=== PATIENT | male | born 1970 | race Caucasian/White ===

== ENCOUNTER 2017-07-07 03:30 | Observation (INO) | payer SELFPAY ==
[2017-07-07] VITALS (16 sets, daily range): BP systolic 162–185; BP diastolic 96–111; PULSE 86–100; RESP 14–20; TEMP 97.7–99.4; O2SAT 93–100
[~2017-07-07] VITALS: Ht 180.3 cm; Wt 108.2 kg
[2017-07-07] MEDS ORDERED: ONDANSETRON HCL 4 MG/2 ML VIAL IV PUSH ONE (04:30)
[2017-07-07] MEDS ORDERED: MORPHINE SULFATE 4 MG/ML INJ IV PUSH ONE ×2 (04:30→11:30)
--- NOTE | 2017-07-07 04:42 | RADRPT ---
EXAM DATE/TIME: 07/07/2017 04:31 [place] COMPARISON: No previous studies available for comparison. INDICATIONS : Right hand pain. No known trauma. MEDICAL HISTORY : None. SURGICAL HISTORY : None. ENCOUNTER: Initial ACUITY: 2 days PAIN SCORE: 10/10 LOCATION: Right hand. FINDINGS: Three view examination of the right hand demonstrates no soft tissue swelling, dislocation, or fractu re. The carpal bones appear intact. The interphalangeal and metacarpophalangeal joints are intact. Bony mineralization is normal. CONCLUSION: Normal examination for a patient of this age. Elmer Clark MD on July 07, 2017 at 4:39 Board Certified Radiologist. This report was verified electronically.
[2017-07-07 04:57] LABS: AUTOMATED NEUTROPHIL # 6.7 TH/MM3 (1.8-7.7); BASOPHIL # 0.1 TH/MM3 (0-0.2); BASOPHIL % 0.9 % (0.0-2.0); EOSINOPHIL # 0.1 TH/MM3 (0-0.4); EOSINOPHIL % 1.1 % (0.0-4.0); HEMATOCRIT 32.5 % (39.0-51.0); LYMPH % 13.7 % (9.0-44.0); LYMPHOCYTE # 1.3 TH/MM3 (1.0-4.8); MEAN CELL VOLUME 74.5 FL (80.0-100.0); MEAN CORPUSCULAR HEMOGLOBIN 23.2 PG (27.0-34.0); MEAN CORPUSCULAR HGB CONC 31.1 % (32.0-36.0); NEUT % 72.3 % (16.0-70.0); PLATELET COUNT 311 TH/MM3 (150-450); RED BLOOD COUNT 4.36 MIL/MM3 (4.50-5.90); RED CELL DISTRIBUTION WIDTH 21.2 % (11.6-17.2); WHITE BLOOD COUNT 9.3 TH/MM3 (4.0-11.0)
[2017-07-07] MEDS: SODIUM CHLOR 0.9% 1000 ML INJ 1,000 ML IV SCH ×4 (04:59→23:48)
[2017-07-07 05:00] LABS: HEMO FLAGS AUTO DIFF
[2017-07-07 05:25] LABS: OVALOCYTES 1+ (NORMAL)
[2017-07-07 05:26] LABS: PLATELET ESTIMATE SMEAR NORMAL (NORMAL); PLATELET MORPHOLOGY NORMAL (NORMAL); SCAN/DIFF AUTO DIFF CONFIRMED
[2017-07-07 05:28] LABS: BICARBONATE 28.6 MEQ/L (21.0-32.0); POTASSIUM 2.8 MEQ/L (3.5-5.1)
--- NOTE | 2017-07-07 05:33 | PD ---
HPI Chief Complaint: Edema Time Seen by Provider: 04:26 Travel History International Travel<30 days: No Contact w/Intl Traveler<30days: No Traveled to known affect area: No History of Present Illness HPI 46-year-old male presents to the emergency department by private transportation for evaluation of right hand and wrist swelling. Patient denies any injury or fall. Patient rates pain as 10 over 10 in intensity. Patient's had no fever or chills. Patient's had no ascending erythema. Patient has had ascending pain into the right forearm. Patient is right-handed. Patient states she went to bed on Tuesday evening feeling completely normal awakened during the middle of night in the early hours of Tuesday noticing pain in the right hand and wrist area. Patient reports throughout Tuesday day pain continued to worsen along with swelling of the wrist and hand. Patient now has such severe pain he has difficulty with thumb flexion extension and apposition abduction and abduction and has inability to completely flex and extend digit secondary to marked pain. Patient is noted some warmth to the dorsum of the right hand and marked tenderness to the thenar eminence. Patient denies any puncture wound, insect bite, or injury. Patient denies any fever or chills. Patient denies any axillary tenderness or lymphadenopathy. Patient denies any chronic medical conditions denies history of diabetes autoimmune disorder steroid use substance use or gouty arthritis. Patient took 600 mg of ibuprofen at 1 AM prior to arrival to the emergency department without any symptom relief. PFSH Past Medical History Influenza Vaccination: No Social History Alcohol Use: Yes (2-3/daily) Tobacco Use: No Substance Use: No Allergies-Medications (Allergen,Severity, Reaction): Coded Allergies: No Known Allergies (Unverified , 07/07/17) Narrative Medication as needed ibuprofen Review of Systems Except as stated in HPI: all other systems reviewed are Neg General / Constitutional: No: Fever, Chills HENT: No: Congestion Cardiovascular: No: Chest Pain or Discomfort Respiratory: No: Shortness of Breath Gastrointestinal: No: Abdominal Pain Genitourinary: No: Flank Pain Musculoskeletal: Positive: Limited ROM (right hand/digits), Edema, Pain Skin: No Rash Neurologic: No: Weakness Psychiatric: No: Anxiety Hematologic/Lymphatic: No: Easy Bruising, Lymph Node Enlargement Physical Exam Narrative GENERAL: Well-developed well-nourished male in obvious discomfort no respiratory distress SKIN: Warm and dry. HEAD: Normocephalic. EYES: No scleral icterus. No injection or drainage. NECK: Supple, trachea midline. No JVD or lymphadenopathy. CARDIOVASCULAR: Regular rate and rhythm without murmurs, gallops, or rubs. RESPIRATORY: Breath sounds equal bilaterally. No accessory muscle use. GASTROINTESTINAL: Abdomen soft, non-tender, nondistended. MUSCULOSKELETAL: No cyanosis, or edema. Attention right upper extremity hand and digit edema with increased warmth to the dorsum of the hand while erythema marked tenderness to palpation of the thenar eminence no rigid or tense edema mild wrist edema decreased range of motion at the wrists and digits no ascending erythema no axillary lymphadenopathy radial and ulnar arterial pulses 2+ to palpation. Capillary refill brisk and less than 2 seconds per digit thumb apposition is not perform secondary to marked swelling and pain of the right hand. BACK: Nontender without obvious deformity. No CVA tenderness. Data Data Last Documented VS Vital Signs Date Time Temp Pulse Resp B/P (MAP) Pulse Ox O2 Delivery O2 Flow Rate FiO2 07/07/17 05:28 89 18 182/106 (131) 99 Room Air 07/07/17 03:58 98.4 Orders Orders Complete Blood Count With Diff (07/07/17 04:26) Lactic Acid (07/07/17 04:26) Blood Culture (07/07/17 04:26) Basic Metabolic Panel (Bmp) (07/07/17 04:26) Uric Acid (07/07/17 04:26) Hand, Complete ([id number]) (07/07/17 ) Westergren Sedimentation Rate (07/07/17 04:26) Ondansetron Inj (Zofran Inj) (07/07/17 04:30) Morphine Inj (Morphine Inj) (07/07/17 04:30) Sodium Chlor 0.9% 1000 Ml Inj (Ns 1000 M (07/07/17 04:30) Ampicillin-Sulbactam Inj (Unasyn Inj) (07/07/17 05:45) Potassium Chlor 10 Meq Premix (Kcl 10 Me (07/07/17 05:45) Hydralazine Inj (Apresoline Inj) (07/07/17 06:15) Potassium Chloride (Kcl) (07/07/17 06:15) Admit Order (Ed Use Only) (07/07/17 ) ^ Saline Lock (07/07/17 06:17) Resp Oxygen Jose D C Titrat 1-4 L (07/07/17 ) Notify Dr: Other (07/07/17 06:17) Sodium Chloride 0.9% Flush (Ns Flush) (07/07/17 09:00) Sodium Chloride 0.9% Flush (Ns Flush) (07/07/17 06:30) Consult Hand Surgery (07/07/17 ) Labs Laboratory Tests Test 07/07/17 04:40 White Blood Count 9.3 TH/MM3 Red Blood Count 4.36 MIL/MM3 Hemoglobin 10.1 GM/DL Hematocrit 32.5 % Mean Corpuscular Volume 74.5 FL Mean Corpuscular Hemoglobin 23.2 PG Mean Corpuscular Hemoglobin Concent 31.1 % Red Cell Distribution Width 21.2 % Platelet Count 311 TH/MM3 Mean Platelet Volume 6.6 FL Neutrophils (%) (Auto) 72.3 % Lymphocytes (%) (Auto) 13.7 % Monocytes (%) (Auto) 12.0 % Eosinophils (%) (Auto) 1.1 % Basophils (%) (Auto) 0.9 % Neutrophils # (Auto) 6.7 TH/MM3 Lymphocytes # (Auto) 1.3 TH/MM3 Monocytes # (Auto) 1.1 TH/MM3 Eosinophils # (Auto) 0.1 TH/MM3 Basophils # (Auto) 0.1 TH/MM3 CBC Comment AUTO DIFF Differential Comment AUTO DIFF CONFIRMED Platelet Estimate NORMAL Platelet Morphology Comment NORMAL Ovalocytes 1+ Erythrocyte Sedimentation Rate 30 mm/hr Blood Urea Nitrogen 6 MG/DL Creatinine 0.79 MG/DL Random Glucose 133 MG/DL Calcium Level 7.7 MG/DL Uric Acid 9.3 MG/DL Sodium Level 136 MEQ/L Potassium Level 2.8 MEQ/L Chloride Level 98 MEQ/L Carbon Dioxide Level 28.6 MEQ/L Anion Gap 9 MEQ/L Estimat Glomerular Filtration Rate 107 ML/MIN Lactic Acid Level 3.6 mmol/L MDM Medical Decision Making Medical Screen Exam Complete: Yes Emergency Medical Condition: Yes Medical Record Reviewed: Yes Interpretation(s) CBC & BMP Diagram 07/07/17 04:40 Calcium Level 7.7 L Vital Signs Date Time Temp Pulse Resp B/P (MAP) Pulse Ox O2 Delivery O2 Flow Rate FiO2 07/07/17 05:28 89 18 182/106 (131) 99 Room Air 07/07/17 05:04 18 07/07/17 04:11 86 16 167/96 (119) 99 Room Air 07/07/17 04:05 16 100 Room Air 07/07/17 03:58 98.4 96 16 162/104 (123) 07/07/17 03:38 98.4 96 14 162/104 (123) 100 sed rate: 30, elevated lactic acid: 3.6, elevated right hand XR: no subcutaneous gas, no acute zhane abnormality or retained foreign body Differential Diagnosis Cellulitis, tenosynovitis, abscess, fracture, puncture wound, retained foreign body, hypertension; no findings for necrotizing fasciitis, no limb ischemia Narrative Course IV access obtained specimens collected and sent for resulting including blood cultures and lactic acid Total white cell count within normal range with 72% neutrophils by automated differential lactic acid however is elevated at 3.6; patient presumptively administered Unasyn 3 g IV piggyback Patient receiving oral and IV potassium replacement Blood pressure dressed with hydralazine Patient's case discussed with on-call medicine for observation admission regarding inflammatory versus infectious etiology of hand pain and swelling total white cell count is in normal range however patient does have elevation of lactic acid mild elevation of sedimentation rate; uric acid level remains pending. Medicine will admit for ongoing pain management as needed hand surgery consult management of hypertension and hypokalemia. It is now 6:58 AM uric acid level has been resulted and is elevated at 9.2 also to consider gouty arthritis/ inflammatory tenosynovitis Critical Care Narrative Aggregate critical care time was 30 minutes. Time to perform other separately billable procedures was not included in the critical care time. My time did not include minutes spent treating any other patients simultaneously or on activities that did not directly contribute to the patient's treatment. The services I provided to this patient were to treat and/or prevent clinically significant deterioration that could result in: Infectious tenosynovitis, septic arthritis, arrhythmia, I provided critical care services requiring my management, as noted below: Chart data review, documentation time, medication orders and management, vital sign assessments/reviewing monitor data, ordering and reviewing lab tests, ordering and interpreting/reviewing x-rays and diagnostic studies, care of the patient and discussion of the patient with the admitting physicians. Sepsis Criteria SIRS Criteria (2 or more): Heart rate over 90 Septic Shock Criteria: Lactic acid >=4 Physician Communication Physician Communication call placed to hand surgeon, repeat call-no answer for hand service; discussed with Dr Kang for admission --cellulitis --possible tenosynovitis, hypokalemia, htn Diagnosis Primary Impression: Cellulitis of hand, right Additional Impressions: Tenosynovitis of right hand Hypokalemia Admitting Information Admitting Physician Requests: Admit Dianne Gama MD Jul 07, 2017 05:33
[2017-07-07] MEDS ORDERED: AMPICILLIN-SULBACTAM INJ 3 GM in SODIUM CHLORIDE 0.9% INJ 100 ML IV ONE (05:45)
[2017-07-07] MEDS ORDERED: hydrALAZINE HCL 20 MG/ML VIAL IV PUSH ONE (06:15)
[2017-07-07] MEDS ORDERED: POTASSIUM CHLORIDE 20 MEQ CONTROLLED RELEASE TAB PO ONE (06:15)
[2017-07-07] MEDS: POTASSIUM CHLOR 10 MEQ PREMIX 100 ML IV SCH ×3 (06:20→09:37)
[2017-07-07] MEDS ORDERED: SODIUM CHLORIDE 0.9% FLUSH 10 ML FLUSH IVF PRN (06:30)
[2017-07-07 06:40] LABS: URIC ACID 9.3 MG/DL (2.6-7.2)
[2017-07-07] MEDS ORDERED: NALOXONE HCL 0.4 MG/ML AMP IV PRN (08:00)
[2017-07-07] MEDS ORDERED: methylPREDNISolone SOD SUCC 125 MG/2 ML VIAL IV PUSH ONE (08:00)
--- NOTE | 2017-07-07 08:16 | MB ---
cc: KALIA LAWSON MD DATE OF CONSULTATION 07/07/2017 REASON FOR CONSULTATION Right wrist pain. HISTORY OF PRESENT ILLNESS The patient is a 46-year-old right-hand dominant male who presented to the ED with sudden onset of pain involving the right wrist and hand since last night. It is of sudden onset. The patient complains of worsening pain with range of motion. He also complains of associated swelling. Denies any injury. Denies any bites. Denies any history of similar complaints in the past. Denies any tingling or numbness. The patient has been in the ER for the past several hours. He has received a dose of antibiotic, but there is no change in his symptoms. PAST MEDICAL AND SURGICAL HISTORY Reviewed and nonsignificant. EXAMINATION The patient is in pain. On examination of the right upper extremity, it reveals swelling over the dorsal aspect of the wrist and hand. Increased warmth over the region. Diffuse tenderness noted over the wrist and dorsal aspect of the hand. Range of motion of the wrist is limited and painful. Finger range of motion is limited and painful. He has intact sensation distally. He has intact capillary refill. He has palpable pulses. No evidence of fluctuation or prior injuries noted. LABORATORY DATA Lab work was reviewed. He has a white count of 9.3, neutrophil shift of 72%. His ESR is elevated to 30. He has a lactic acid of 3.6 and uric acid of 9.3. IMAGING STUDIES Imaging of the right wrist and hand shows soft tissue swelling. No evidence of bony lesion or joint lesion. 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 PLAN keep the joint with removable wrist brace. Limb elevation on pillows. Finger range of motion exercises. Consider anti-inflammatory medication either Indomethacin or oral steroids. Hand surgery will follow. Kalia Lawson MD SE/PRABHU /8:02 AM /8:06 AM NIKI
[2017-07-07] MEDS ORDERED: SODIUM CHLORIDE 0.9% FLUSH 10 ML FLUSH IV FLUSH SCH (09:00)
[2017-07-07] MEDS: SODIUM CHLORIDE 0.9% FLUSH 10 ML FLUSH IV FLUSH SCH ×2 (09:37→21:53)
[2017-07-07] MEDS: SODIUM CHLORIDE 0.9% FLUSH 10 ML FLUSH IV FLUSH PRN ×2 (11:26→12:01)
[2017-07-07] MEDS: AMPICILLIN-SULBACTAM INJ 3 GM in SODIUM CHLORIDE 0.9% INJ 100 ML IV SCH ×3 (12:01→23:48)
[2017-07-07] MEDS ORDERED: KETOROLAC TROMETHAMINE 30 MG/ML (IVP) VIAL IV PUSH SCH (12:30)
[2017-07-07] MEDS ORDERED: ENALAPRILAT 1.25 MG/ML VIAL IV PUSH PRN (12:30)
[2017-07-07] MEDS: COLCHICINE 0.6 MG TAB PO SCH ×2 (13:41→21:53)
[2017-07-07] MEDS: INDOMETHACIN 25 MG CAP PO SCH ×2 (14:15→22:10)
--- NOTE | 2017-07-07 14:49 | HHI.HP ---
[facility] No Primary Care Physician Admission Diagnosis R hand tenosynovitis; hypokalemia; HTN Diagnoses: Chief Complaint: Right wrist pain Travel History International Travel<30 Days: No Contact w/Intl Traveler <30 Da: No Traveled to Known Affected Are: No History of Present Illness Patient seen and evaluated today in follow-up for right wrist pain for 1 day. Pain has been severe and worse with movement. No associated fever but significant acute swelling. Patient denies any trauma and is noted at this time to have improvement of symptoms after IV morphine and after splinting of the wrist. He isn't seen by hand surgery recommended for supportive care of likely monoarticular inflammatory joint disease. Review of Systems Constitutional: DENIES: Diaphoretic episodes, Fatigue, Fever, Weight gain, Weight loss, Chills, Dizziness, Change in appetite, Night Sweats Endocrine: DENIES: Heat/cold intolerance, Polydipsia, Polyuria, Polyphagia Eyes: DENIES: Blurred vision, Diplopia, Eye inflammation, Eye pain, Vision loss , Photosensitivity, Double Vision Ears, nose, mouth, throat: DENIES: Tinnitus, Hearing loss, Vertigo, Nasal discharge, Oral lesions, Throat pain, Hoarseness, Ear Pain, Running Nose, Epistaxis, Sinus Pain, Toothache, Odynophagia Respiratory: DENIES: Apneas, Cough, Snoring, Wheezing, Hemoptysis, Sputum production, Shortness of breath Cardiovascular: DENIES: Chest pain, Palpitations, Syncope, Dyspnea on Exertion , PND, Lower Extremity Edema, Orthopnea, Claudication Gastrointestinal: DENIES: Abdominal pain, Black stools, Bloody stools, Constipation, Diarrhea, Nausea, Vomiting, Difficulty Swallowing, Anorexia Genitourinary: DENIES: Sexual dysfunction, Urinary frequency, Urinary incontinence, Urgency, Hematuria, Dysuria, Nocturia, Penile Discharge, Testicular Pain, Testicular Swelling Musculoskeletal: COMPLAINS OF: Joint pain Hematologic/lymphatic: DENIES: Bruising, Lymphadenopathy Immunologic/allergic: DENIES: Eczema, Urticaria Neurologic: DENIES: Abnormal gait, Headache, Localized weakness, Paresthesias, Seizures, Speech Problems, Tremor, Poor Balance Psychiatric: DENIES: Anxiety, Confusion, Mood changes, Depression, Hallucinations, Agitation, Suicidal Ideation, Homicidal Ideation, Delusions Past Family Social History Past Medical History Denies Past Surgical History Denies adult surgeries Reported Medications None at home Allergies: Coded Allergies: No Known Allergies (Unverified , 07/07/17) Active Ordered Medications Reviewed and the medical record Family History Patient does not recall any family history of gout Social History Drinks several vodkas daily, denies tobacco Physical Exam Vital Signs Vital Signs Date Time Temp Pulse Resp B/P (MAP) Pulse Ox O2 Delivery O2 Flow Rate FiO2 07/07/17 13:30 98.4 92 20 182/111 (134) 98 07/07/17 12:05 88 16 185/105 (131) 98 07/07/17 12:01 16 07/07/17 11:01 86 16 100 Room Air 07/07/17 10:15 91 16 176/102 (126) 98 Room Air 07/07/17 09:15 90 16 98 Room Air 07/07/17 09:00 90 16 175/104 (127) 98 Room Air 07/07/17 08:10 93 16 173/102 (125) 97 Room Air 07/07/17 07:05 101 16 Room Air 100 07/07/17 07:05 99.4 100 16 182/102 (128) 100 Room Air 07/07/17 06:44 93 18 167/100 (122) 93 Room Air 07/07/17 06:31 92 18 180/98 (125) 99 Room Air 07/07/17 06:22 99 21 07/07/17 05:28 89 18 182/106 (131) 99 Room Air 07/07/17 05:04 18 07/07/17 04:11 86 16 167/96 (119) 99 Room Air 07/07/17 04:05 16 100 Room Air 07/07/17 03:58 98.4 96 16 162/104 (123) 07/07/17 03:38 98.4 96 14 162/104 (123) 100 Physical Exam GENERAL: This is a well-nourished, well-developed patient, in no apparent distress. SKIN: No rashes, ecchymoses or lesions. Cool and dry. HEAD: Atraumatic. Normocephalic. No temporal or scalp tenderness. EYES: Pupils equal round and reactive. Extraocular motions intact. No scleral icterus. No injection or drainage. ENT: Nose without bleeding, purulent drainage or septal hematoma. Throat without erythema, tonsillar hypertrophy or exudate. Uvula midline. Airway patent. NECK: Trachea midline. No JVD or lymphadenopathy. Supple, nontender, no meningeal signs. CARDIOVASCULAR: Regular rate and rhythm without murmurs, gallops, or rubs. RESPIRATORY: Clear to auscultation. Breath sounds equal bilaterally. No wheezes , rales, or rhonchi. GASTROINTESTINAL: Abdomen soft, non-tender, nondistended. No hepato-splenomegaly , or palpable masses. No guarding. MUSCULOSKELETAL: Right wrist tenderness in and swollen with increased warmth over the region and decreased range of motion limited by pain otherwise 3 Extremities without clubbing, cyanosis, or edema. No joint tenderness, effusion , or edema noted. No calf tenderness. Negative Homans sign bilaterally. NEUROLOGICAL: Awake and alert. Cranial nerves II through XII intact. Motor and sensory grossly within normal limits. Five out of 5 muscle strength in all muscle groups. Normal speech. Laboratory Laboratory Tests Test 07/07/17 04:40 White Blood Count 9.3 Red Blood Count 4.36 Hemoglobin 10.1 Hematocrit 32.5 Mean Corpuscular Volume 74.5 Mean Corpuscular Hemoglobin 23.2 Mean Corpuscular Hemoglobin Concent 31.1 Red Cell Distribution Width 21.2 Platelet Count 311 Mean Platelet Volume 6.6 Neutrophils (%) (Auto) 72.3 Lymphocytes (%) (Auto) 13.7 Monocytes (%) (Auto) 12.0 Eosinophils (%) (Auto) 1.1 Basophils (%) (Auto) 0.9 Neutrophils # (Auto) 6.7 Lymphocytes # (Auto) 1.3 Monocytes # (Auto) 1.1 Eosinophils # (Auto) 0.1 Basophils # (Auto) 0.1 CBC Comment AUTO DIFF Differential Comment AUTO DIFF CONFIRMED Platelet Estimate NORMAL Platelet Morphology Comment NORMAL Ovalocytes 1+ Erythrocyte Sedimentation Rate 30 Blood Urea Nitrogen 6 Creatinine 0.79 Random Glucose 133 Calcium Level 7.7 Uric Acid 9.3 Sodium Level 136 Potassium Level 2.8 Chloride Level 98 Carbon Dioxide Level 28.6 Anion Gap 9 Estimat Glomerular Filtration Rate 107 Lactic Acid Level 3.6 Date/Time Source Procedure Growth Status 07/07/17 04:45 Blood Peripheral Aerobic Blood Culture Pending Received 07/07/17 04:45 Blood Peripheral Anaerobic Blood Culture Pending Received Result Diagram: 07/07/17 0440 07/07/17 0440 Imaging Last Impressions Hand X-Ray 07/07/17 0000 Signed Impressions: Service Date/Time: June 04:31 - CONCLUSION: Normal examination for a patient of this age. MD Cecilio Wilder VTE Risk Assessment Cecilio VTE Risk Assessment: No/Low Risk (score <= 1) Caprini Risk Assessment Model Point Value = 1 Point Value = 2 Point Value = 3 Point Value = 5 Age 41-60 Minor surgery BMI > 25 kg/m2 Swollen legs Varicose veins or History of unexplained or recurrent spontaneous Oral contraceptives or hormone replacement Sepsis (< 1 month) Serious lung disease, including pneumonia (< 1 month) Abnormal pulmonary function Acute myocardial infarction Congestive heart failure (< 1 month) History of inflammatory bowel disease Medical patient at bed rest Age 61-74 Arthroscopic surgery Major open surgery (> 45 min) Laparoscopic surgery (> 45 min) Malignancy Confined to bed (> 72 hours) Immobilizing plaster cast Central venous access Age >= 75 History of VTE Family history of VTE Factor V Leiden Prothrombin [id number] Lupus anticoagulant Anticardiolipin antibodies Elevated serum homocysteine Heparin-induced thrombocytopenia Other congenital or acquired thrombophilia Stroke (< 1 month) Elective arthroplasty Hip, pelvis, or leg fracture Acute spinal cord injury (< 1 month) Prophylaxis Regimen Total Risk Factor Score Risk Level Prophylaxis Regimen 0-1 Low Early ambulation 2 Moderate Order ONE of the following: *Sequential Compression Device (SCD) *Heparin 5000 units SQ BID 3-4 Higher Order ONE of the following medications: *Heparin 5000 units SQ TID *Enoxaparin/Lovenox 40 mg SQ daily (WT < 150 kg, CrCl > 30 mL/min) *Enoxaparin/Lovenox 30 mg SQ daily (WT < 150 kg, CrCl > 10-29 mL/min) *Enoxaparin/Lovenox 30 mg SQ BID (WT < 150 kg, CrCl > 30 mL/min) AND/OR *Sequential Compression Device (SCD) 5 or more Highest Order ONE of the following medications: *Heparin 5000 units SQ TID (Preferred with Epidurals) *Enoxaparin/Lovenox 40 mg SQ daily (WT < 150 kg, CrCl > 30 mL/min) *Enoxaparin/Lovenox 30 mg SQ daily (WT < 150 kg, CrCl > 10-29 mL/min) *Enoxaparin/Lovenox 30 mg SQ BID (WT < 150 kg, CrCl > 30 mL/min) AND *Sequential Compression Device (SCD) Assessment and Plan Problem List: (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 Patient's currently stable Yomaira Black MD Jul 07, 2017 14:49
[2017-07-07] MEDS: methylPREDNISolone SOD SUCC 40 MG/1 ML VIAL IV PUSH SCH ×2 (17:31→21:53)
[2017-07-07] MEDS: oxyCODONE/ACETAMINOPHEN 7.5 MG/325 MG TAB PO PRN (21:53)
[2017-07-08] VITALS: BP 169/108; PULSE 94; RESP 18; TEMP 96.9; O2SAT 98
[2017-07-08 04:00] VITALS: BP 162/102; PULSE 97; RESP 20; TEMP 97.8; O2SAT 100
[2017-07-08] MEDS: AMPICILLIN-SULBACTAM INJ 3 GM in SODIUM CHLORIDE 0.9% INJ 100 ML IV SCH (05:32)
[2017-07-08] MEDS: oxyCODONE/ACETAMINOPHEN 7.5 MG/325 MG TAB PO PRN (05:32)
[2017-07-08] MEDS: INDOMETHACIN 25 MG CAP PO SCH (05:32)
[2017-07-08] MEDS: methylPREDNISolone SOD SUCC 40 MG/1 ML VIAL IV PUSH SCH (05:33)
[2017-07-08 07:00] LABS: AUTOMATED NEUTROPHIL # 8.6 TH/MM3 (1.8-7.7); BASOPHIL % 0.1 % (0.0-2.0); EOSINOPHIL % 0.1 % (0.0-4.0); HEMO FLAGS AUTO DIFF; LYMPH % 6.3 % (9.0-44.0); LYMPHOCYTE # 0.6 TH/MM3 (1.0-4.8); MEAN CELL VOLUME 76.7 FL (80.0-100.0); MEAN CORPUSCULAR HEMOGLOBIN 24.2 PG (27.0-34.0); MEAN CORPUSCULAR HGB CONC 31.6 % (32.0-36.0); MONO % 6.8 % (0.0-8.0); NEUT % 86.7 % (16.0-70.0); PLATELET COUNT 271 TH/MM3 (150-450); RED BLOOD COUNT 3.65 MIL/MM3 (4.50-5.90); RED CELL DISTRIBUTION WIDTH 21.3 % (11.6-17.2); WHITE BLOOD COUNT 9.9 TH/MM3 (4.0-11.0)
[2017-07-08 07:09] LABS: POTASSIUM 3.1 MEQ/L (3.5-5.1)
[2017-07-08 07:22] LABS: SCAN/DIFF AUTO DIFF CONFIRMED
[2017-07-08 07:33] LABS: BICARBONATE 25.7 MEQ/L (21.0-32.0)
[2017-07-08 07:49] LABS: CALCIUM-PROTEIN CORRECTED 7.4 MG/DL (8.5-10.1)
[2017-07-08 08:00] VITALS: BP 161/107; PULSE 81; RESP 18; TEMP 96.3; O2SAT 97
[2017-07-08] MEDS ORDERED: POTASSIUM CHLORIDE 10 MEQ CONTROLLED RELEASE TAB PO ONE (08:00)
[2017-07-08 08:11] LABS: MAGNESIUM 1.9 MG/DL (1.5-2.5)
[2017-07-08] MEDS ORDERED: cloNIDine HCL 0.1 MG TAB PO PRN (09:00)
[2017-07-08] MEDS ORDERED: CALCIUM GLUCONATE INJ 1 GM in DEXTROSE 5% IN WATER 100ML INJ 100 ML IV ONE ×2 (09:00)
[2017-07-08] MEDS: COLCHICINE 0.6 MG TAB PO SCH (09:00)
[2017-07-08] MEDS: SODIUM CHLORIDE 0.9% FLUSH 10 ML FLUSH IV FLUSH SCH (09:29)
[2017-07-08] MEDS ORDERED: OXYC1TAB35 PO (10:25)
[2017-07-08] MEDS ORDERED: INDO25CA PO (10:25)
[2017-07-08] MEDS ORDERED: AMOX500T2 PO (10:25)
[2017-07-08] MEDS ORDERED: COLC1TAB15 PO (10:25)
--- NOTE | 2017-07-08 10:30 | HHI.DS ---
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 Pain has been severe and worse with movement. No associated fever but significant acute swelling. Patient denies any trauma and is noted at this time to have improvement of symptoms after IV morphine and after splinting of the wrist. He isn't seen by hand surgery recommended for supportive care of likely monoarticular inflammatory joint disease. CBC/BMP: 07/08/17 0547 07/08/17 0547 Significant Findings Laboratory Tests Test 07/07/17 04:40 07/08/17 05:47 07/08/17 09:30 Red Blood Count 4.36 MIL/MM3 (4.50-5.90) 3.65 MIL/MM3 (4.50-5.90) Hemoglobin 10.1 GM/DL (13.0-17.0) 8.8 GM/DL (13.0-17.0) Hematocrit 32.5 % (39.0-51.0) 28.0 % (39.0-51.0) Mean Corpuscular Volume 74.5 FL (80.0-100.0) 76.7 FL (80.0-100.0) Mean Corpuscular Hemoglobin 23.2 PG (27.0-34.0) 24.2 PG (27.0-34.0) Mean Corpuscular Hemoglobin Concent 31.1 % (32.0-36.0) 31.6 % (32.0-36.0) Red Cell Distribution Width 21.2 % (11.6-17.2) 21.3 % (11.6-17.2) Mean Platelet Volume 6.6 FL (7.0-11.0) Neutrophils (%) (Auto) 72.3 % (16.0-70.0) 86.7 % (16.0-70.0) Monocytes (%) (Auto) 12.0 % (0.0-8.0) Monocytes # (Auto) 1.1 TH/MM3 (0-0.9) Ovalocytes 1+ (NORMAL) Erythrocyte Sedimentation Rate 30 mm/hr (0-15) Blood Urea Nitrogen 6 MG/DL (7-18) Random Glucose 133 MG/DL (74-106) 127 MG/DL (74-106) Calcium Level 7.7 MG/DL (8.5-10.1) 7.1 MG/DL (8.5-10.1) Uric Acid 9.3 MG/DL (2.6-7.2) Potassium Level 2.8 MEQ/L (3.5-5.1) 3.1 MEQ/L (3.5-5.1) Lactic Acid Level 3.6 mmol/L (0.4-2.0) Lymphocytes (%) (Auto) 6.3 % (9.0-44.0) Neutrophils # (Auto) 8.6 TH/MM3 (1.8-7.7) Lymphocytes # (Auto) 0.6 TH/MM3 (1.0-4.8) Protein Corrected Calcium 7.4 MG/DL (8.5-10.1) Phosphorus Level 2.0 MG/DL (2.5-4.9) Imaging Last Impressions Hand X-Ray 07/07/17 0000 Signed Impressions: Service Date/Time: June 04:31 - CONCLUSION: Normal examination for a patient of this age. Elmer Clark MD PE at Discharge right arm tender GENERAL: This is a well-nourished, well-developed patient, in no apparent distress. CARDIOVASCULAR: Regular rate and rhythm without murmurs, gallops, or rubs. RESPIRATORY: Clear to auscultation. Breath sounds equal bilaterally. No wheezes , rales, or rhonchi. GASTROINTESTINAL: Abdomen soft, non-tender, nondistended. Normal active bowel sounds MUSCULOSKELETAL: Extremities without clubbing, cyanosis, or edema. NEURO: Alert & Oriented x4 to person, place, time, situation. Moves all ext x4 Pt update on day of discharge Seen today, pain improved. A lecture lites low which will need to be replaced prior to discharge. Discussed with patient and he is agreeable Hospital Course Patient is a 46-year-old gentleman with right arm inflammatory joint disease likely gout. Patient has responded to indomethacin and colchicine and some steroids. Blood pressure has been low bit elevated however there is a significant pain complaint and he has been on steroids. Patient will continue in but her blood pressure monitoring He is advised to discontinue alcohol and heavy protein diet. Pt Condition on Discharge: Good Discharge Disposition: Discharge Home Discharge Time: <= 30 minutes Discharge Instructions New Medications: Amoxicillin-Clavulanate (Amoxicillin-Clavulanate) 500-125 mg Tab 500 MG PO BID for Infection for 10 Days, TAB 0 Refills Colchicine (Colchicine) 0.6 Mg Tab 0.6 MG PO BID for Inflammation, #62 TAB Indomethacin (Indomethacin) 25 Mg Cap 25 MG PO Q8HR for Inflammation, #90 CAP Take with food, milk, or antacids to decrease stomach adverse effects. Oxycodone-Acetaminophen (Oxycodone-Acetaminophen) 7.5-325 mg Tab 1 TAB PO Q6H PRN for PAIN SCALE 1 TO 10, #20 TAB Yomaira Black MD Jul 08, 2017 10:30
--- NOTE | 2017-07-08 10:31 | HHI.DCPOC ---
Discharge Care Plan Diagnosis: (1) Monoarticular arthritis Goals to Promote Your Health * To prevent worsening of your condition and complications * To maintain your health at the optimal level Directions to Meet Your Goals Take your medications as prescribed Follow your dietary instruction Follow activity as directed Keep your appointments as scheduled Take your immunizations and boosters as scheduled If your symptoms worsen call your PCP, if no PCP go to Urgent Care Center or Emergency Room Smoking is Dangerous to Your Health. Avoid second hand smoke Call the 24-hour hour crisis hotline for domestic abuse at Yomaira Black MD Jul 08, 2017 10:31
[2017-07-08] MEDS ORDERED: amLODIPine BESYLATE 5 MG TAB PO ONE (10:45)
[2017-07-08 11:53] VITALS: BP 151/98; PULSE 68; RESP 18; TEMP 97; O2SAT 99
[2017-07-08 12:19] VITALS: BP 132/78
--- NOTE | 2017-07-09 01:25 | EKG ---
Date Performed: 07/07/2017 Time Performed: 06:57:09 PTAGE: 46 years EKG: Sinus rhythm NORMAL ECG NO PREVIOUS TRACING DOCTOR: Bryce Wilhelm Interpretating Date/Time 07/09/2017 01:24:24
== END 2017-07-08 12:35 | disposition home or self-care (01) ==
LOC: PHED 03:30 → PHEDA 06:19 → PHEDH 11:02 → PH3B 12:15
PROVIDERS: ADMIT Hospitalist; ATTEND Hospitalist
DX: L03.113 Cellulitis of right upper limb (principal); M65.9 Synovitis and tenosynovitis, unspecified; M13.131 Monoarthritis, not elsewhere classified, right wrist; M10.9 Gout, unspecified; E87.6 Hypokalemia; F10.20 Alcohol dependence, uncomplicated
CPT/HCPCS: 73130; 80048; 83605; 83735; 84100; 84155; 84550; 85025; 85652; 87040; 93005; 96361; 96365; 96366; 96367; 96375; 96376; 99291; G0378; J0295; J0360; J0610; J1885; J2270; J2405; J2920; J2930; J3480; J7030; L3908

== ENCOUNTER 2018-04-04 06:26 | Emergency (ER) | payer OTHER ==
[~2018-04-04] VITALS: Ht 180.3 cm; Wt 99.0 kg
[~2018-04-04 06:26] MED LIST: AMOX500T2 PO; COLC1TAB15 PO; INDO25CA PO; OXYC1TAB35 PO
[2018-04-04 06:33] VITALS: BP 119/76; PULSE 108; RESP 18; TEMP 98.6; O2SAT 100
[2018-04-04] MEDS ORDERED: INDO25CA PO (07:15)
[2018-04-04] MEDS ORDERED: COLCHICINE 0.6 MG TAB PO ONE ×2 (07:15→07:30)
[2018-04-04] MEDS ORDERED: PERC5TAB12 PO (07:16)
--- NOTE | 2018-04-04 07:16 | PD ---
HPI Chief Complaint: Pain: Acute or Chronic Time Seen by Provider: 07:03 Travel History International Travel<30 days: No Contact w/Intl Traveler<30days: No Traveled to known affect area: No History of Present Illness HPI Patient is a 47-year-old male presents to emergency room with multiple complaints. Patient reports that today, he noticed a bulge in his right groin when he stood up; reports that the bulge is resolved when laying down and resting. Reports concern that this has never happened in the past. patient denies any pain to his groin at this time, reports that it just feels a little tingly at this time. Patient denies any groin pain, denies any testicular pain. Patient also reports that he has been having problems with his gout flareup to his bilateral ankles which has been ongoing for the past month. Patient reports that he was admitted last year for a gout flareup, reports that he had run out of his indomethacin as well as colchicine which she was taking prophylactically. Patient does have an appointment with his primary care doctor on Tuesday for these prescriptions. Patient requesting prescription at this time as he is having alot of pain and difficultly with ambulation since the gout was initially in his left ankle and now is in the right ankle. Patient with no fever/chills. No other complaints. . PFSH Past Medical History Narrative Medical Positive for gout, alcoholism Heart Rhythm Problems: No Cardiovascular Problems: No High Cholesterol: No Chest Pain: No Congestive Heart Failure: No Cerebrovascular Accident: No GERD: Yes Gout: Yes Musculoskeletal: No Neurologic: No Respiratory: No Migraines: No Seizures: No Tetanus Vaccination: > 5 Years Influenza Vaccination: No Past Surgical History Abdominal Surgery: No Cardiac Surgery: No Ear Surgery: No Endocrine Surgery: No Eye Surgery: Yes (WEAK MASSAL ) Genitourinary Surgery: No Gynecologic Surgery: No Oral Surgery: No Thoracic Surgery: No Other Surgery: Yes (LEFT EYE) Social History Alcohol Use: Yes (2-3/daily) Tobacco Use: No Substance Use: Yes (Marihuana one time a week) Allergies-Medications (Allergen,Severity, Reaction): Coded Allergies: No Known Allergies (Unverified Allergy, Unknown, 04/04/18) Reported Meds & Prescriptions Reported Meds & Active Scripts Active Percocet (Oxycodone-Acetaminophen) 5-325 mg Tab 1 Tab PO Q6H PRN Indomethacin 25 Mg Cap 25 Mg PO TID Take with food, milk, or antacids to decrease stomach adverse effects. Review of Systems General / Constitutional: No: Fever Eyes: No: Visual changes HENT: No: Headaches Cardiovascular: No: Chest Pain or Discomfort Respiratory: No: Shortness of Breath Gastrointestinal: No: Abdominal Pain Genitourinary: No: Dysuria Musculoskeletal: Positive: Pain (Bilateral ankles) Skin: No Rash Neurologic: No: Weakness Psychiatric: No: Depression Endocrine: No: Polydipsia Hematologic/Lymphatic: No: Easy Bruising Physical Exam Narrative GENERAL: NAD SKIN: Focused skin assessment warm/dry. HEAD: Atraumatic. Normocephalic. EYES: Pupils equal and round. No scleral icterus. No injection or drainage. ENT: No nasal bleeding or discharge. Mucous membranes pink and moist. NECK: Trachea midline. No JVD. CARDIOVASCULAR: Regular rate and rhythm. No murmur appreciated. RESPIRATORY: No accessory muscle use. Clear to auscultation. Breath sounds equal bilaterally. GASTROINTESTINAL: Abdomen soft, non-tender, nondistended. Hepatic and splenic margins not palpable. : Exam performed with RN at bedside, patient with right sided inguinal hernia with cough -patient does not have an incarcerated hernia MUSCULOSKELETAL: No obvious deformities. No clubbing. No cyanosis. No edema. Patient with no calf tenderness, no signs of infection, no erythema or redness to bilateral ankles, no swelling NEUROLOGICAL: Awake and alert. No obvious cranial nerve deficits. Motor grossly within normal limits. Normal speech. PSYCHIATRIC: Appropriate mood and affect; insight and judgment normal. Data Data Last Documented VS Vital Signs Date Time Temp Pulse Resp B/P (MAP) Pulse Ox O2 Delivery O2 Flow Rate FiO2 04/04/18 06:33 98.6 108 18 119/76 (90) 100 Orders Orders Colchicine (Colchicine) (04/04/18 07:15) Oxycodone-Acetamin 5-325 Mg (Percocet (04/04/18 07:30) Colchicine (Colchicine) (04/04/18 07:30) MDM Medical Decision Making Medical Screen Exam Complete: Yes Emergency Medical Condition: Yes Medical Record Reviewed: Yes Interpretation(s) Vital Signs Date Time Temp Pulse Resp B/P (MAP) Pulse Ox O2 Delivery O2 Flow Rate FiO2 04/04/18 06:33 98.6 108 18 119/76 (90) 100 Differential Diagnosis Inguinal hernia, testicular torsion, epididymitis, arthritis versus gout Narrative Course Patient is a 47-year-old male who presents the emergency room for evaluation of right-sided inguinal hernia which he noticed today, patient with no signs of incarceration, inguinal hernia is only palpated with increased abdominal pressure, discussed with patient that he may follow-up with general surgeon for inguinal hernia repair. Patient understands that if he has any signs of incarceration, he is to return to the emergency room immediately. Patient with history of gout, patient has gouty arthritis to bilateral ankles, plan to give him a dose of colchicine 1.2 mg now, we will give him another dose of colchicine 0.6 mg in 1 hour. We will start him on indomethacin. Patient will also be given a dose of Percocet for pain. Patient will follow-up with his primary care doctor on Tuesday as scheduled and will return to the emergency room as needed. Diagnosis Primary Impression: Inguinal hernia Qualified Codes: K40.90 - Unilateral inguinal hernia, without obstruction or gangrene, not specified as recurrent Additional Impression: Gout attack Qualified Codes: M10.9 - Gout, unspecified Patient Instructions: Narcotic given in the ED, General Instructions Departure Forms: Tests/Procedures, Work Release Enter return to work date: Apr 10, 2018 Additional Instructions: Please follow-up with your primary care doctor on Tuesday as scheduled Do not drive or operate heavy machinery while taking narcotic pain medications Please follow-up with a general surgeon for inguinal hernia repair Return to the emergency room if you develop any signs of incarceration of your inguinal hernia Return to the emergency room as needed Med/Other Pt SpecificInfo: Prescription(s) given Scripts Oxycodone-Acetaminophen (Percocet) 5-325 mg Tab 1 TAB PO Q6H Y for PAIN, #12 TAB 0 Refills Prov: Dori Conner DO 04/04/18 Indomethacin (Indomethacin) 25 Mg Cap 25 MG PO TID, #30 CAP 0 Refills Take with food, milk, or antacids to decrease stomach adverse effects. Prov: Dori Conner DO 04/04/18 Disposition: 01 DISCHARGE HOME Condition: Stable Dori Conner DO April 04, 2018 07:16
[2018-04-04] MEDS ORDERED: oxyCODONE/ACETAMINOPHEN 5 MG/325 MG TAB PO ONE (07:30)
[2018-04-04 08:24] VITALS: BP 97/76; PULSE 88; RESP 18; O2SAT 98
== END 2018-04-04 08:30 | disposition home or self-care (01) ==
LOC: PHED 06:26
DX: K40.90 Unilateral inguinal hernia, without obstruction or gangrene, not specified as recurrent (principal); M10.9 Gout, unspecified; F12.90 Cannabis use, unspecified, uncomplicated; K21.9 Gastro-esophageal reflux disease without esophagitis
CPT/HCPCS: 99283